=== PATIENT | male | born 1940 ===

== ENCOUNTER 2024-09-23 10:13 | Inpatient (IN) ==
--- NOTE | 2024-09-23 10:39 | Emergency Department Note ---
Impression & Plan Acute upper gastrointestinal bleeding, Anemia, Contusion of elbow, right, Skin tear of right upper extremity ED Provider Note NAME: ALLISON SWANN Jr AGE: 84 SEX: M : 1940 ARRIVES VIA: Walk-In INFORMANT: Patient, the patient's significant other ED PROVIDER(S): John Lacey DO CHIEF COMPLAINT: Dizziness HPI: The patient is an 84-year-old male who presented to the emergency department for an evaluation of dizziness. The patient did fall injuring his right elbow. He has a history of atrial fibrillation as well as a pacemaker. He does take Coumadin. He is been noticing dark stool recently. He was seen in an outside facility and was noted to be anemic but his anemia was not at the level requiring transfusion at that time. The patient presented to our facility after discussing his condition with his primary care physician. He was instructed to come to our facility. The patient denies having any chest pain. He did not strike his head. He denies having any neck pain or headache. The patient does take omeprazole. He states he is been compliant with his outpatient medications however he did hold his Coumadin. ROS: See above HPI for pertinent positives & negatives. A total of 10 systems reviewed and were otherwise negative. PAST MEDICAL HISTORY: See Below PAST SURGICAL HISTORY: See Below FAMILY HISTORY: See Below SOCIAL HISTORY: See Below HOME MEDICATIONS: See Below ALLERGIES: See Below VITALS: See Below PHYSICAL EXAMINATION: GENERAL: Patient is awake alert in no acute distress patient is resting comfortably and showing no signs of anxiety EYES: The conjunctivae are clear. The pupils are round and reactive. EARS, NOSE, MOUTH AND THROAT: The nose is without any evidence of any deformity. NECK: The neck is nontender and supple. RESPIRATORY: Normal respiratory effort is noted there is no evidence of wheezing rhonchi or rales CARDIOVASCULAR: Regular rate and rhythm noted there no murmurs rubs or gallops normal S1 normal S2. GASTROINTESTINAL: The abdomen is soft. Abdomen is nontender. Rectal exam revealed dark stool that was strongly heme positive. MUSCULOSKELETAL/EXTREMITIES: There is no evidence of gross deformity full range of motion is noted in the hips and shoulders. There is tenderness over the lateral aspect of the right elbow. Range of motion appears intact. SKIN: There is no obvious evidence of any rash. Pedal edema was noted bilaterally.. Small skin tear was noted over the right elbow. There is no active bleeding. NEUROLOGIC: Patient is awake alert and oriented x3 MEDICAL DECISION MAKING: The patient is an 84-year-old male who presented to the emergency department for dizziness weakness and anemia. The patient has a history of atrial fibrillation. He has a pacemaker. The patient was noted to have signs of upper GI bleeding on physical exam by his primary care physician. He was sent to a different emergency department but at that time did not meet criteria for a blood transfusion. The patient was having dizziness upon standing and did fall. He injured his right elbow. He did not strike his head. There is no reported headache or neck pain. On physical exam the patient did not have any neck pain. I discussed the patient's laboratory and radiographic studies with him. He was started on an blood transfusion that I ordered. The patient was also given IV vitamin K. [facility] evaluate the patient in the emergency department. Triage Nursing notes reviewed. Prior medical records reviewed Vital Signs: reviewed and remarkable for no significant abnormalities Differential diagnosis: Diverticulosis, AVM, coagulopathy, colitis, inflammatory bowel disease, malignancy, Norma-Tan tear, esophagitis, peptic ulcer disease, variceal bleed, gastritis, epistaxis, fissure, hemorrhoids, as well as other pathologies. ER treatment provided: See below Diagnostics interpreted by me: ECG: EKG was obtained in the emergency department. My interpretation is junctional bradycardia at 60 bpm. A left bundle branch block pattern was noted. Peaked T waves were also noted. No previous tracing was available. Cardiac Monitoring: An order was placed for continuous cardiac monitoring. The monitor shows a rate of 60 bpm with atrial fibrillation. Laboratory studies: As stated above and show below. Imaging studies: See below. Radiographic imaging was reviewed by myself Consultation(s): I discussed this case with Dr. Hunt who [facility] ED COURSE: Procedures: none Critical Care: I have personally spent greater than 45 minutes of critical care time in the direct management of this patient. This includes bedside care, interpretation of diagnostic studies, and testing, discussion with consultants, patient, and family members, and other required patient management activities. This 45 minutes is in excess of all separately billable procedures. Past Med/Surg History Problem List (Updated 09/23/24 @ 13:21 by John Lacey DO) Skin tear of right upper extremity (Acute) Contusion of elbow, right (Acute) Anemia (Acute) Acute upper gastrointestinal bleeding (Acute) Effusion, right elbow Upper gastrointestinal bleed Acute blood loss anemia Chronic anticoagulation Hypertension Dyslipidemia History of aortic valve replacement History of cardiac pacemaker in situ AV node dysfunction Paroxysmal atrial fibrillation Spermatocele Benign localized prostatic hyperplasia with lower urinary tract symptoms (LUTS) Surgical History (Updated 09/23/24 @ 12:28 by Jono Napier DO) History of cholecystectomy H/O oral surgery H/O colonoscopy Hx of heart surgery H/O knee surgery Family History Father Prostate cancer Brother Prostate cancer Social History Smoking Status: Unknown if ever smoked Hx Alcohol Use: Yes Preferred Language: Yi marital status: current occupational status: retired Feels Safe at Home: Yes Allergies Allergies Allergy/AdvReac Type Severity Reaction Status Date / Time No Known Allergies Allergy Verified 08/27/21 13:04 Home Meds Home Medications Medication Instructions Recorded Confirmed aspirin 81 mg tablet,delayed 81 mg PO DAILY 08/09/19 09/23/24 release cetirizine 10 mg capsule 10 mg PO DIRECTED PRN allergies 08/09/19 09/23/24 esomeprazole magnesium 20 mg 20 mg PO UD 08/09/19 09/23/24 capsule,delayed release lovastatin 40 mg tablet 40 mg PO DAILY 08/09/19 09/23/24 methylcellulose (laxative) 500 mg 500 mg PO DAILY 08/09/19 09/23/24 tablet (Citrucel) omeprazole 10 mg capsule,delayed 10 mg PO DAILY 08/09/19 09/23/24 release pantoprazole 20 mg tablet,delayed 20 mg PO UD 08/09/19 09/23/24 release triamcinolone acetonide 55 55 mcg intranasal DIRECTED 08/09/19 09/23/24 mcg/actuation nasal spray,aerosol warfarin 2 mg tablet 2 mg PO UD 08/09/19 09/23/24 clopidogrel 75 mg tablet 75 mg PO DAILY 09/23/24 09/23/24 metoprolol succinate 25 mg 25 mg PO DAILY 09/23/24 09/23/24 tablet,extended release 24 hr sotalol 80 mg tablet 40 mg PO BID 09/23/24 09/23/24 Previous Rx's Medication Instructions Recorded dutasteride 0.5 mg capsule 0.5 mg PO DAILY #90 caps 09/13/23 tamsulosin 0.4 mg capsule 0.4 mg PO DAILY #90 caps 09/11/24 Results & Data (ED) Vital Signs Vital Signs - 24 hr 09/23/24 10:15 09/23/24 10:15 09/23/24 10:17 Temperature 36.5 C Temperature Source Skin Pulse Rate - Lying Pulse Rate - Sitting Pulse Rate - Standing Pulse Rate 60 Pulse Rate [Left] 60 Pulse Rhythm Pulse Rhythm [Left] Regular Pulse Strength Pulse Strength [Left] Normal Respiratory Rate 24 20 Respiratory Effort / Characteristics Non-Labored Non-Labored Spontaneous Respiratory Depth Normal Normal Respiratory Pattern Regular Regular Blood Pressure - Lying Blood Pressure - Sitting Blood Pressure- Standing Blood Pressure 109/60 Blood Pressure [Left Arm] 155/79 H Blood Pressure Mean 76 Blood Pressure Mean [Left Arm] 104 Blood Pressure Position Blood Pressure Position [Left Arm] Lying Pulse Oximetry 100 100 Oxygen Delivery Method Room Air Room Air Room Air Sepsis Recent Fever Within 48 Hours No Sepsis New/Unexplained Change in Mental Status N/A Sepsis Action Taken by Nursing No Action Required 09/23/24 10:29 09/23/24 10:40 09/23/24 11:51 Temperature Temperature Source Pulse Rate - Lying 60 Pulse Rate - Sitting 60 Pulse Rate - Standing 71 Pulse Rate 60 61 Pulse Rate [Left] Pulse Rhythm Regular Pulse Rhythm [Left] Pulse Strength Pulse Strength [Left] Respiratory Rate 22 Respiratory Effort / Characteristics Respiratory Depth Respiratory Pattern Blood Pressure - Lying 140/80 Blood Pressure - Sitting 144/65 H Blood Pressure- Standing 122/54 L Blood Pressure Blood Pressure [Left Arm] Blood Pressure Mean Blood Pressure Mean [Left Arm] Blood Pressure Position Blood Pressure Position [Left Arm] Pulse Oximetry 100 Oxygen Delivery Method Room Air Sepsis Recent Fever Within 48 Hours Sepsis New/Unexplained Change in Mental Status Sepsis Action Taken by Nursing 09/23/24 12:17 09/23/24 12:36 09/23/24 12:51 Temperature 36.1 C L 36.5 C 36.7 C Temperature Source Oral Oral Oral Pulse Rate - Lying Pulse Rate - Sitting Pulse Rate - Standing Pulse Rate 63 63 60 Pulse Rate [Left] Pulse Rhythm Regular Pulse Rhythm [Left] Pulse Strength Normal Pulse Strength [Left] Respiratory Rate 18 17 18 Respiratory Effort / Characteristics Respiratory Depth Respiratory Pattern Blood Pressure - Lying Blood Pressure - Sitting Blood Pressure- Standing Blood Pressure 146/60 H 119/50 L 139/69 Blood Pressure [Left Arm] Blood Pressure Mean 88 73 92 Blood Pressure Mean [Left Arm] Blood Pressure Position Lying Blood Pressure Position [Left Arm] Pulse Oximetry 99 98 99 Oxygen Delivery Method Sepsis Recent Fever Within 48 Hours Sepsis New/Unexplained Change in Mental Status Sepsis Action Taken by Longterm Medications Current Medication List: was personally reviewed by me Laboratory Data Attestation: I reviewed the patient's lab results. 09/23/24 10:34 09/23/24 10:34 Lab Results 09/23/24 09/23/24 09/23/24 Range/Units 10:34 10:38 10:40 WBC 7.30 (4.8-10.8) K/ul RBC 2.50 L (4.70-6.10) M/uL Hgb 7.3 L (14.0-18.0) g/dl POC Hgb 7.1 L (14.0-18.0) g/dl Hct 22.7 L (42.0-52.0) % POC Hct 21 L (42-52) % MCV 90.8 (80.0-100.0) fL MCH 29.2 (25.0-34.0) pg MCHC 32.2 (32.0-36.0) g/dL RDW Std Deviation 57.8 H (36.4-46.3) fL RDW Coeff of Ziggy 17.4 H (11.5-14.5) % Plt Count 170 (130-400) K/uL MPV 10.6 (9.4-12.4) fL Immature Gran % (Auto) 0.4 % Neut % (Auto) 72.2 % Lymph % (Auto) 18.1 % [place] % (Auto) 8.2 % Eos % (Auto) 0.8 % Baso % (Auto) 0.3 % Neut # (Auto) 5.27 (1.40-6.50) K/uL Lymph # (Auto) 1.32 (1.20-3.40) K/uL [place] # (Auto) 0.60 H (0.11-0.59) K/uL Eos # (Auto) 0.06 (0.00-0.50) K/uL Baso # (Auto) 0.02 (0.00-0.20) K/uL Immature Gran # (Auto) 0.03 (0.01-0.20) K/uL Polychromasia 1+ PT 21.7 H (9.0-12.0) Seconds INR 2.1 H (0.9-1.1) APTT 30 (21-31) Seconds PTT Ratio 1.1 POC Sodium 140 (135-144) mmol/L Sodium 139 (136-145) mmol/L POC Potassium 3.9 (3.3-5.0) mmol/L Potassium 4.0 (3.5-5.1) mmol/L POC Chloride 104 (101-112) mmol/L Chloride 108 H (98-107) mmol/L Carbon Dioxide 28 (21-32) mmol/L POC Total CO2 24 (24-31) mmol/L Anion Gap 3 (3-11) POC Anion Gap 17.0 (16-25) mmol/L POC BUN 27 H (7-18) mg/dl BUN 30 H (6-23) mg/dl Creatinine 1.24 (0.6-1.4) mg/dl POC Creatinine 1.4 H (0.6-1.3) mg/dl Est Cr Clr Drug Dosing Not Reportable eGFR 58.05 BUN/Creatinine Ratio 24.2 H (10-20) Glucose 104 H (70-99(Fasting)) mg/dl POC Glucose (other) 98 (70-99) mg/dl Calcium 8.6 (8.6-10.3) mg/dl POC Ioniz Calcium Annia 1.19 (1.12-1.32) mmol/l Total Bilirubin 0.9 (0.2-1.0) mg/dl AST 18 (13-39) U/L ALT 10 (7-52) U/L Alkaline Phosphatase 76 (34-104) U/L Troponin I High Sens 17.5 (0-20) pg/ml Total Protein 6.0 (6.0-8.3) gm/dl Albumin 3.7 (3.4-5.0) gm/dl Globulin 2.3 L (2.5-4.0) gm/dl Albumin/Globulin Ratio 1.6 (0.9-2) Lipase 36 (11-82) U/L Blood Type O Positive Blood Type Recheck Antibody Screen NEGATIVE Crossmatch See Detail 09/23/24 Range/Units 11:12 WBC (4.8-10.8) K/ul RBC (4.70-6.10) M/uL Hgb (14.0-18.0) g/dl POC Hgb (14.0-18.0) g/dl Hct (42.0-52.0) % POC Hct (42-52) % MCV (80.0-100.0) fL MCH (25.0-34.0) pg MCHC (32.0-36.0) g/dL RDW Std Deviation (36.4-46.3) fL RDW Coeff of Ziggy (11.5-14.5) % Plt Count (130-400) K/uL MPV (9.4-12.4) fL Immature Gran % (Auto) % Neut % (Auto) % Lymph % (Auto) % [place] % (Auto) % Eos % (Auto) % Baso % (Auto) % Neut # (Auto) (1.40-6.50) K/uL Lymph # (Auto) (1.20-3.40) K/uL [place] # (Auto) (0.11-0.59) K/uL Eos # (Auto) (0.00-0.50) K/uL Baso # (Auto) (0.00-0.20) K/uL Immature Gran # (Auto) (0.01-0.20) K/uL Polychromasia PT (9.0-12.0) Seconds INR (0.9-1.1) APTT (21-31) Seconds PTT Ratio POC Sodium (135-144) mmol/L Sodium (136-145) mmol/L POC Potassium (3.3-5.0) mmol/L Potassium (3.5-5.1) mmol/L POC Chloride (101-112) mmol/L Chloride (98-107) mmol/L Carbon Dioxide (21-32) mmol/L POC Total CO2 (24-31) mmol/L Anion Gap (3-11) POC Anion Gap (16-25) mmol/L POC BUN (7-18) mg/dl BUN (6-23) mg/dl Creatinine (0.6-1.4) mg/dl POC Creatinine (0.6-1.3) mg/dl Est Cr Clr Drug Dosing eGFR BUN/Creatinine Ratio (10-20) Glucose (70-99(Fasting)) mg/dl POC Glucose (other) (70-99) mg/dl Calcium (8.6-10.3) mg/dl POC Ioniz Calcium Annia (1.12-1.32) mmol/l Total Bilirubin (0.2-1.0) mg/dl AST (13-39) U/L ALT (7-52) U/L Alkaline Phosphatase (34-104) U/L Troponin I High Sens (0-20) pg/ml Total Protein (6.0-8.3) gm/dl Albumin (3.4-5.0) gm/dl Globulin (2.5-4.0) gm/dl Albumin/Globulin Ratio (0.9-2) Lipase (11-82) U/L Blood Type Blood Type Recheck O Positive Antibody Screen Crossmatch Administered Medications Discontinued Medications Pantoprazole Sodium (Protonix) 40 mg in 10 mls @ 5 mls/min IV NOW ONE Stop: 09/23/24 10:30 Last Admin: 09/23/24 10:48 Dose: 5 mls/min Documented By: KHRIS Famotidine (Pepcid 20mg Iv Push) 20 mg in 5 mls @ 2.5 mls/min IV NOW STA Stop: 09/23/24 10:30 Last Admin: 09/23/24 10:48 Dose: 2.5 mls/min Documented By: KHRIS Phytonadione 5 mg/ Dextrose 50.5 mls @ 101 mls/hr IV ONE ONE Stop: 09/23/24 12:07 Last Admin: 09/23/24 12:29 Dose: 101 mls/hr Documented By: KHRIS Imaging Data Attestation: I personally reviewed and interpreted this imaging study as follows: My Impression: X-ray of the right elbow was obtained in the emergency department. My interpretation is no definite fracture, final report below. 1 view chest x-ray was obtained in the emergency department. My interpretation is no free air or definite full tray, final report below. Radiologist's Impression: Elbow X-Ray 09/23/24 10:29 HISTORY: Fall several days ago. Right elbow pain and skin abrasion. TECHNIQUE: Left right elbow, 4 views. COMPARISON: None. FINDINGS: No definite acute fracture. Mild elbow osteoarthrosis. Large elbow joint effusion. Multiple ossific intra-articular loose bodies. There is a large bulky enthesophyte about the posterior olecranon. Atherosclerotic vascular disease. IMPRESSION: 1. No definite acute fracture. Large elbow joint effusion raising the possibility of occult fracture. If symptoms persist, consider repeat radiographs in 7 to 10 days. 2. Soft tissue swelling about the dorsal aspect of the proximal forearm. 3. Intra-articular loose bodies. Mild osteoarthritis. 4. Large bulky distal triceps enthesophyte. Electronically signed by Real Earl 09-23-2024 11:54 AM Chest X-Ray 09/23/24 10:30 HISTORY: Upper GI bleed. Trauma due to fall. TECHNIQUE: Portable AP radiograph of the chest. COMPARISON: None. FINDINGS: No focal consolidation. No pneumothorax or pleural effusion. Mild cardiomegaly. Left subclavian approach dual-lead pacer. Left-sided aortic arch contains atherosclerotic calcification. Midline trachea. Degenerative changes of the shoulders and spine. Bilateral loss of the subacromial space consistent with chronic bilateral full-thickness rotator cuff tears. The included upper abdomen is unremarkable. Mild right calcified pleural plaques. IMPRESSION: 1. No acute cardiopulmonary findings. 2. Mild cardiomegaly. 3. Right calcified pleural plaques suggesting prior asbestos exposure. 4. Additional chronic and/for incidental findings as above. Electronically signed by Real Earl 09-23-2024 11:55 AM Discharge Plan Visit Data Chief Complaint: Weakness Stated Complaint: ANEMIA, WEAK, LIGHTHEADED/DIZZY, HEMOGLOBIN 7.8 ED Provider: John Lacey Discharge Problem: Acute upper gastrointestinal bleeding, Anemia, Contusion of elbow, right, Skin tear of right upper extremity Patient Disposition: Being Evaluated by Hospitalist Forms Stand Alone Forms: My EVRYTHNG Prescriptions Prescriptions: No Action tamsulosin 0.4 mg capsule 0.4 mg PO DAILY Qty: 90 3RF Rx Instructions: At Bedtime aspirin 81 mg tablet,delayed release (DR/EC) 81 mg PO DAILY Rx Instructions: otc unable to verify cetirizine 10 mg capsule 10 mg PO DIRECTED PRN (Reason: allergies) Rx Instructions: otc unable to verify Citrucel 500 mg tablet 500 mg PO DAILY Rx Instructions: otc unable to verify lovastatin 40 mg tablet 40 mg PO DAILY esomeprazole magnesium 20 mg capsule,delayed release(DR/EC) 20 mg PO UD Rx Instructions: not on file with pharmacy/otc, per pharmacist they only fill omeprazole. 20 mg po daily. triamcinolone acetonide 55 mcg/actuation aerosol 55 mcg intranasal DIRECTED Rx Instructions: not on file with pharmacy, maybe otc per pharmacist omeprazole 10 mg capsule,delayed release(DR/EC) 10 mg PO DAILY pantoprazole 20 mg tablet,delayed release (DR/EC) 20 mg PO UD Rx Instructions: 20 mg po daily. not on file with pharmacy warfarin 2 mg tablet 2 mg PO UD Rx Instructions: original:2 mg po q other day. Per pharmacy, they filled September 11 with directions of: 2mg tab po daily or as directed dutasteride 0.5 mg capsule 0.5 mg PO DAILY Qty: 90 3RF sotalol 80 mg tablet 40 mg PO BID clopidogrel 75 mg tablet 75 mg PO DAILY metoprolol succinate 25 mg tablet extended release 24 hr 25 mg PO DAILY Referrals Referrals: Ruben Arias [Staff Physician] -
[2024-09-23] MEDS ORDERED: SODIUM CHLORIDE 0.9% 100 ML IV PRN ×2 (10:42→19:01)
[2024-09-23] MEDS: FAMOTIDINE 20MG IV PUSH 20 MG/5 ML SYR IV STA (10:48)
[2024-09-23] MEDS: PANTOprazole 40 MG/10 ML SYR IV ONE (10:48)
[2024-09-23 10:52] LABS: iSTAT Creatinine 1.4 mg/dl (0.6-1.3); iSTAT Hemoglobin 7.1 g/dl (14.0-18.0); iSTAT Ionized Calcium 1.19 mmol/l (1.12-1.32); iSTAT Potassium 3.9 mmol/L (3.3-5.0)
[2024-09-23 10:53] LABS: Basophils # (auto) 0.02 K/uL (0.00-0.20); Basophils % (auto) 0.3 %; Eosinophils # (auto) 0.06 K/uL (0.00-0.50); Eosinophils % (auto) 0.8 %; Hematocrit (blood only) 22.7 % (42.0-52.0); Hemoglobin 7.3 g/dl (14.0-18.0); Immature Granulocytes # (auto) 0.03 K/uL (0.01-0.20); Immature Granulocytes % (auto) 0.4 %; Lymphocytes # (auto) 1.32 K/uL (1.20-3.40); Lymphocytes % (auto) 18.1 %; Mean Corpuscular Hemoglobin 29.2 pg (25.0-34.0); Mean Corpuscular Hgb Conc 32.2 g/dL (32.0-36.0); Mean Corpuscular Volume 90.8 fL (80.0-100.0); Mean Platelet Volume 10.6 fL (9.4-12.4); Monocytes % (auto) 8.2 %; Neutrophils # (auto) 5.27 K/uL (1.40-6.50); Neutrophils % (auto) 72.2 %; Platelet Count 170 K/uL (130-400); RDW Coefficient of Variation 17.4 % (11.5-14.5); RDW Standard Deviation 57.8 fL (36.4-46.3)
[2024-09-23 11:14] LABS: Alanine Aminotransferase 10 U/L (7-52); Albumin Globulin Ratio 1.6 (0.9-2); Albumin Level 3.7 gm/dl (3.4-5.0); Alkaline Phosphatase 76 U/L (34-104); Anion Gap 3 (3-11); Aspartate Aminotransferase 18 U/L (13-39); BUN Creatinine Ratio 24.2 (10-20); Bilirubin,Total 0.9 mg/dl (0.2-1.0); Blood Urea Nitrogen 30 mg/dl (6-23); Calcium 8.6 mg/dl (8.6-10.3); Carbon Dioxide 28 mmol/L (21-32); Chloride 108 mmol/L (98-107); Globulin 2.3 gm/dl (2.5-4.0); Glucose 104 mg/dl (70-99(Fasting)); Lipase 36 U/L (11-82); Sodium 139 mmol/L (136-145)
[2024-09-23 11:15] LABS: Polychromasia 1+
[2024-09-23 11:20] LABS: Troponin I High Sensitivity 17.5 pg/ml (0-20)
[2024-09-23 11:29] LABS: INR 2.1 (0.9-1.1); Partial Thromboplastin Ratio 1.1; Partial Thromboplastin Time 30 Seconds (21-31); Prothrombin Time 21.7 Seconds (9.0-12.0)
--- NOTE | 2024-09-23 11:54 | XRay Report ---
HISTORY: Fall several days ago. Right elbow pain and skin abrasion. TECHNIQUE: Left right elbow, 4 views. COMPARISON: None. FINDINGS: No definite acute fracture. Mild elbow osteoarthrosis. Large elbow joint effusion. Multiple ossific intra-articular loose bodies. There is a large bulky enthesophyte about the posterior olecranon. Atherosclerotic vascular disease. IMPRESSION: 1. No definite acute fracture. Large elbow joint effusion raising the possibility of occult fracture. If symptoms persist, consider repeat radiographs in 7 to 10 days. 2. Soft tissue swelling about the dorsal aspect of the proximal forearm. 3. Intra-articular loose bodies. Mild osteoarthritis. 4. Large bulky distal triceps enthesophyte. Electronically signed by Real Earl 09-23-2024 11:54 AM
--- NOTE | 2024-09-23 11:56 | XRay Report ---
HISTORY: Upper GI bleed. Trauma due to fall. TECHNIQUE: Portable AP radiograph of the chest. COMPARISON: None. FINDINGS: No focal consolidation. No pneumothorax or pleural effusion. Mild cardiomegaly. Left subclavian approach dual-lead pacer. Left-sided aortic arch contains atherosclerotic calcification. Midline trachea. Degenerative changes of the shoulders and spine. Bilateral loss of the subacromial space consistent with chronic bilateral full-thickness rotator cuff tears. The included upper abdomen is unremarkable. Mild right calcified pleural plaques. IMPRESSION: 1. No acute cardiopulmonary findings. 2. Mild cardiomegaly. 3. Right calcified pleural plaques suggesting prior asbestos exposure. 4. Additional chronic and/for incidental findings as above. Electronically signed by Real Earl 09-23-2024 11:55 AM
[2024-09-23] MEDS: PHYTONADIONE 5 MG in DEXTROSE 5% 50 ML IV ONE (12:29)
--- NOTE | 2024-09-23 12:35 | History & Physical Report ---
Date of Service September 23, 2024 Assessment & Plan (1) Acute blood loss anemia: (2) Upper gastrointestinal bleed: (3) Effusion, right elbow: (4) Paroxysmal atrial fibrillation: (5) Chronic anticoagulation: (6) History of aortic valve replacement: Plan: Bovine valve (7) History of cardiac pacemaker in situ: (8) Hypertension: Plan Patient presents emergency department with signs and symptoms consistent with anemia including suspected orthostasis, dyspnea on exertion and lightheadedness and dizziness. With the symptoms and history of heart disorder would meet criteria for blood transfusion. Requires hospitalization for treatment, monitoring and specialty consultation. Admit to the MedSurg unit. Patient has been consented for blood and as already receiving PRBCs here in the ED Continue to hold warfarin and antiplatelet therapy. Patient has been holding these medications since Wednesday Vitamin K given in the ED PPI twice daily Monitor hemoglobin, monitor INR Consult GI to evaluate for possible endoscopy Discussed CODE STATUS, patient wishes to be full code and daughter at bedside agreeable to plan of care as well History of Present Illness Chief Complaint: Weight, easily fatigued, low blood count Primary Care Provider: Katia Gold MD Patient is an 84-year-old gentleman on chronic warfarin therapy for history of paroxysmal atrial fibrillation. Reports he has been seeing dark/black stools for at least a week and a half. Has been getting progressively weaker and more fatigued with activity. He fell this past Wednesday walking out of his bedroom after getting out of bed. Did not seek medical attention at that time. Was instructed to go to the emergency department by his PCP yesterday. Went to the outside emergency department facility. His initial hemoglobin was apparently in the mid sevens and was discharged home, his PCP sent him back to the ED for repeat hemoglobin and apparently the repeat hemoglobin was greater than 8 and he was discharged home. PCP subsequently instructed the patient today to go to [facility] emergency department for further evaluation. Patient presented to [facility] emergency department. His hemoglobin is 7.3 here he does admit to lightheadedness and dizziness with changes in position. Does admit to increased fatigue and shortness of breath with any type of activity which is unusual for him. He denies any fever or chills, no cough or cold symptoms. He states he has chronic postnasal drip which is the same as his baseline. No chest pain or shortness of breath at rest. He has been eating and drinking well. His bowels and bladder have been functioning normal for him with the exception that he has noticed that his stools have turned black tarry color and consistency. No new swelling in his hands arms legs or feet. Tenderness right elbow, injured when h e fell on Wednesday Allergies Allergy/AdvReac Type Severity Reaction Status Date / Time No Known Allergies Allergy Verified 08/27/21 13:04 Home Medications Medication Instructions Recorded Confirmed Type aspirin 81 mg tablet,delayed 81 mg PO DAILY 08/09/19 09/23/24 History release cetirizine 10 mg capsule 10 mg PO DIRECTED PRN allergies 08/09/19 09/23/24 History esomeprazole magnesium 20 mg 20 mg PO UD 08/09/19 09/23/24 History capsule,delayed release lovastatin 40 mg tablet 40 mg PO DAILY 08/09/19 09/23/24 History methylcellulose (laxative) 500 mg 500 mg PO DAILY 08/09/19 09/23/24 History tablet (Citrucel) omeprazole 10 mg capsule,delayed 10 mg PO DAILY 08/09/19 09/23/24 History release pantoprazole 20 mg tablet,delayed 20 mg PO UD 08/09/19 09/23/24 History release triamcinolone acetonide 55 55 mcg intranasal DIRECTED 08/09/19 09/23/24 History mcg/actuation nasal spray,aerosol warfarin 2 mg tablet 2 mg PO UD 08/09/19 09/23/24 History dutasteride 0.5 mg capsule 0.5 mg PO DAILY #90 caps 09/13/23 09/23/24 Rx tamsulosin 0.4 mg capsule 0.4 mg PO DAILY #90 caps 09/11/24 09/23/24 Rx clopidogrel 75 mg tablet 75 mg PO DAILY 09/23/24 09/23/24 History metoprolol succinate 25 mg 25 mg PO DAILY 09/23/24 09/23/24 History tablet,extended release 24 hr sotalol 80 mg tablet 40 mg PO BID 09/23/24 09/23/24 History Past Med/Surg History Problem List (Updated 09/23/24 @ 12:32 by Jono Napier DO) Effusion, right elbow Upper gastrointestinal bleed Acute blood loss anemia Chronic anticoagulation Hypertension Dyslipidemia History of aortic valve replacement History of cardiac pacemaker in situ AV node dysfunction Paroxysmal atrial fibrillation Spermatocele Benign localized prostatic hyperplasia with lower urinary tract symptoms (LUTS) Surgical History (Updated 09/23/24 @ 12:28 by Jono Napier DO) History of cholecystectomy H/O oral surgery H/O colonoscopy Hx of heart surgery H/O knee surgery Family History Father Prostate cancer Brother Prostate cancer Social History Smoking Status: Unknown if ever smoked Hx Alcohol Use: Yes Preferred Language: Danish marital status: current occupational status: retired Feels Safe at Home: Yes Review of Systems Review of Systems: Pertinent positive and negative review of systems as mentioned in the HPI Physical Exam Physical Exam: Constitutional: Alert, slightly pale in appearance, nontoxic HEENT: Mucous membranes moist. Sclera clear Neck: Soft, no adenopathy Lungs: Clear to auscultation, decreased, no wheezes rales or rhonchi CV: S1-S2, regular, systolic murmur Abdomen: Soft, nontender, nondistended Extremities: No significant edema Musculoskeletal: Right elbow tenderness, fluctuant effusion Neuro: No focal deficits Psych: Cooperative, normal mood Results & Data Results & Data Vital Signs (Past 12 Hours) Vital Signs Temp Pulse Pulse Resp BP BP Pulse Ox 09/23/24 12:17 36.1 C L 63 18 146/60 H 99 09/23/24 10:40 61 09/23/24 10:29 60 22 100 09/23/24 10:17 36.5 C 60 20 109/60 100 09/23/24 10:15 60 24 155/79 H 100 09/23/24 10:15 O2 Del Method 09/23/24 12:17 09/23/24 10:40 09/23/24 10:29 Room Air 09/23/24 10:17 Room Air 09/23/24 10:15 Room Air 09/23/24 10:15 Room Air Diagnostic Findings Reviewed imaging, laboratory and diagnostic studies. Pertinent findings as below. Hemoglobin 7.3 Platelets of 170 INR 2.1 Electrolytes stable Creatinine 1.24 Glucose of 104 Personally reviewed chest x-ray no acute cardiopulmonary abnormalities Right elbow x-ray, no definitive fracture, large effusion Code Status & VTE Plan VTE Prophylaxis Plan VTE Prophylaxis will be ordered: Yes
[2024-09-23] MEDS ORDERED: ONDANSETRON INJ 2 MG/ML 2 ML VIAL IV PRN (14:31)
[2024-09-23] MEDS ORDERED: MELATONIN 3 MG TAB PO PRN (14:31)
[2024-09-23] MEDS ORDERED: ALUMINUM/MAGNESIUM SUSP 30 ML UDC PO PRN (14:31)
[2024-09-23] MEDS: PANTOprazole 40 MG/10 ML SYR IV SCH (15:36)
[2024-09-23 15:49] LABS: Appearance Urine Clear (Clear); Bacteria Urine Automated None Seen (None Seen); Bilirubin Urine Negative (Negative); Blood Urine Negative (Negative); Cast Urine Automated 0-2 /lpf (0-2); Color Urine Dark Yellow; Epithelial Cell Urine Auto 0-2 /hpf (0-2); Glucose Urine UA Negative (Negative); Ketones Urine Trace (Negative); Leukocyte Esterase Urine Negative (Negative); Nitrite Urine Negative (Negative); Protein Urine Trace (Negative); RBC Urine Automated 0-2 /hpf (0-2); Specific Gravity Urine 1.028 (1.000-1.030); Urobilinogen Urine Negative (Negative); WBC Urine Automated 0-5 /hpf (0-5)
[2024-09-23 18:25] LABS: Hematocrit (blood only) 22.6 % (42.0-52.0); Hemoglobin 7.2 g/dl (14.0-18.0)
[2024-09-23] MEDS: FUROSEMIDE INJ 20 MG/2 ML VIAL IV ONE (20:07)
[2024-09-23] MEDS: SOTALOL HCL 80 MG TAB PO SCH (21:10)
[2024-09-24 01:35] LABS: Hematocrit (blood only) 26.3 % (42.0-52.0); Hemoglobin 8.7 g/dl (14.0-18.0)
[2024-09-24 06:15] LABS: Hematocrit (blood only) 24.6 % (42.0-52.0); Hemoglobin 8.2 g/dl (14.0-18.0); Mean Corpuscular Hemoglobin 29.2 pg (25.0-34.0); Mean Corpuscular Hgb Conc 33.3 g/dL (32.0-36.0); Mean Corpuscular Volume 87.5 fL (80.0-100.0); Mean Platelet Volume 10.7 fL (9.4-12.4); Platelet Count 153 K/uL (130-400); RDW Coefficient of Variation 16.3 % (11.5-14.5); RDW Standard Deviation 51.8 fL (36.4-46.3); Red Blood Count 2.81 M/uL (4.70-6.10); White Blood Count 6.23 K/ul (4.8-10.8)
[2024-09-24 06:37] LABS: INR 1.3 (0.9-1.1); Prothrombin Time 13.6 Seconds (9.0-12.0)
[2024-09-24 06:49] LABS: BUN Creatinine Ratio 18.4 (10-20); Calcium 8.2 mg/dl (8.6-10.3); Creatinine Clr Calc Pharmacy 59.2 ml/min; Potassium 3.7 mmol/L (3.5-5.1)
[2024-09-24] MEDS: FINASTERIDE 5 MG TAB PO SCH (09:05)
[2024-09-24] MEDS: TAMSULOSIN HCL 0.4 MG CAP PO SCH (09:06)
[2024-09-24] MEDS: METOPROLOL SUCC 25MG EXT REL TAB PO SCH (09:14)
--- NOTE | 2024-09-24 09:31 | Gastrointestinal Consultation ---
Date of Consultation September 24, 2024 Assessment & Plan (1) Anemia: Pleasant man with a week and a half of melena which he says stopped on Wednesday. That day his stools were black/brown and he has not had a bowel movement since. I suspect he has a GI bleed related to ulcer disease, possibly related to ASA a nd it seems to have stopped. Of course there are a number of other possible causes for UGI bleed including AVM's and GI malignancy. Plan EGD for tomorrow. He agrees History of Present Illness Reason for Consultation: melena Attending Physician: Luis Fisher MD History of Present Illness 84year old man who has been having black stools for about a week and a half. He denies abdominal pain with it. He had a fall three days prior to admission and bruised his elbow. He was in the hospital at "[facility]" and his PCP told him to leave there and to come here because they didn't give him any blood. He was taking plavix, warfarin and ASA and his PCP stopped that last week when he reported the black stools. He denies other NSAIDs. He has never had an ulcer before, only prior GI issue was "diverticulitis". Sees GI at [facility]. Thinks he had an EGD when he had his valve replacement with bovine valve. He tells me he feels great now. Allergies Allergy/AdvReac Type Severity Reaction Status Date / Time No Known Allergies Allergy Verified 08/27/21 13:04 Home Medications Medication Instructions Recorded Confirmed Type aspirin 81 mg tablet,delayed 81 mg PO DAILY 08/09/19 09/23/24 History release cetirizine 10 mg capsule 10 mg PO DIRECTED PRN allergies 08/09/19 09/23/24 History esomeprazole magnesium 20 mg 20 mg PO UD 08/09/19 09/23/24 History capsule,delayed release lovastatin 40 mg tablet 40 mg PO DAILY 08/09/19 09/23/24 History methylcellulose (laxative) 500 mg 500 mg PO DAILY 08/09/19 09/23/24 History tablet (Citrucel) omeprazole 10 mg capsule,delayed 10 mg PO DAILY 08/09/19 09/23/24 History release pantoprazole 20 mg tablet,delayed 20 mg PO UD 08/09/19 09/23/24 History release triamcinolone acetonide 55 55 mcg intranasal DIRECTED 08/09/19 09/23/24 History mcg/actuation nasal spray,aerosol warfarin 2 mg tablet 2 mg PO UD 08/09/19 09/23/24 History dutasteride 0.5 mg capsule 0.5 mg PO DAILY #90 caps 09/13/23 09/23/24 Rx tamsulosin 0.4 mg capsule 0.4 mg PO DAILY #90 caps 09/11/24 09/23/24 Rx clopidogrel 75 mg tablet 75 mg PO DAILY 09/23/24 09/23/24 History metoprolol succinate 25 mg 25 mg PO DAILY 09/23/24 09/23/24 History tablet,extended release 24 hr sotalol 80 mg tablet 40 mg PO BID 09/23/24 09/23/24 History Patient History Surgical History History of cholecystectomy H/O oral surgery H/O colonoscopy Hx of heart surgery H/O knee surgery Family History Father Prostate cancer Brother Prostate cancer Social History Smoking Status: Former smoker Tobacco Type: Cigarettes and Cigars Second Hand Exposure: No; Tobacco Cessation Education Requested by Patient: No Hx Alcohol Use: No Hx Substance Use: No Preferred Language: Faroese Communication Ability: Effective Water Quality Tester Required: No Beliefs That Will Affect Care: None marital status: Current Living Situation: Spouse current occupational status: retired Other Information That Helps Us Care for You: No Feels Safe at Home: Yes Safety Concerns: Feels Safe At This Time Assistive Devices: Cane and Glasses Review of Systems Review of Systems: All systems reviewed & are unremarkable except as noted in HPI & below Physical Exam Physical Exam: Pleasant elderly man in no distress Constitutional: WD/WN, vitals as above Neck: trachea midline, no thyromegaly Respiratory: normal respiratory effort, lungs clear to auscultation Cardiovascular: RRR, no murmur, no edema Gastrointestinal (Abdomen): normal bowel sounds, soft, nontender, no hepatosplenomegaly Results & Data Vital Signs (Past 12 Hours) Vital Signs Temp Pulse Pulse Resp BP BP Pulse Ox 09/24/24 07:09 36.4 C L 60 18 124/63 97 09/23/24 23:25 36.6 C 61 20 117/63 97 09/23/24 22:25 36.6 C 61 20 116/50 L 98 O2 Del Method 09/24/24 07:09 Room Air 09/23/24 23:25 09/23/24 22:25 Laboratory Results 09/24/24 09/24/24 09/23/24 Range/Units 05:22 01:13 17:59 WBC 6.23 (4.8-10.8) K/ul RBC 2.81 L (4.70-6.10) M/uL Hgb 8.2 L 8.7 L 7.2 L (14.0-18.0) g/dl POC Hgb (14.0-18.0) g/dl Hct 24.6 L 26.3 L 22.6 L (42.0-52.0) % POC Hct (42-52) % MCV 87.5 (80.0-100.0) fL MCH 29.2 (25.0-34.0) pg MCHC 33.3 (32.0-36.0) g/dL RDW Std Deviation 51.8 H (36.4-46.3) fL RDW Coeff of Ziggy 16.3 H (11.5-14.5) % Plt Count 153 (130-400) K/uL MPV 10.7 (9.4-12.4) fL Immature Gran % (Auto) % Neut % (Auto) % Lymph % (Auto) % Liberty % (Auto) % Eos % (Auto) % Baso % (Auto) % Neut # (Auto) (1.40-6.50) K/uL Lymph # (Auto) (1.20-3.40) K/uL Liberty # (Auto) (0.11-0.59) K/uL Eos # (Auto) (0.00-0.50) K/uL Baso # (Auto) (0.00-0.20) K/uL Immature Gran # (Auto) (0.01-0.20) K/uL Polychromasia PT 13.6 H (9.0-12.0) Seconds INR 1.3 H (0.9-1.1) APTT (21-31) Seconds PTT Ratio POC Sodium (135-144) mmol/L Sodium 140 (136-145) mmol/L POC Potassium (3.3-5.0) mmol/L Potassium 3.7 (3.5-5.1) mmol/L POC Chloride (101-112) mmol/L Chloride 105 (98-107) mmol/L Carbon Dioxide 29 (21-32) mmol/L POC Total CO2 (24-31) mmol/L Anion Gap 6 (3-11) POC Anion Gap (16-25) mmol/L POC BUN (7-18) mg/dl BUN 23 (6-23) mg/dl Creatinine 1.25 (0.6-1.4) mg/dl POC Creatinine (0.6-1.3) mg/dl Est Cr Clr Drug Dosing 59.2 eGFR 57.49 BUN/Creatinine Ratio 18.4 (10-20) Glucose 92 (70-99(Fasting)) mg/dl POC Glucose (other) (70-99) mg/dl Calcium 8.2 L (8.6-10.3) mg/dl POC Ioniz Calcium Annia (1.12-1.32) mmol/l Total Bilirubin (0.2-1.0) mg/dl AST (13-39) U/L ALT (7-52) U/L Alkaline Phosphatase (34-104) U/L Troponin I High Sens (0-20) pg/ml Total Protein (6.0-8.3) gm/dl Albumin (3.4-5.0) gm/dl Globulin (2.5-4.0) gm/dl Albumin/Globulin Ratio (0.9-2) Lipase (11-82) U/L Urine Color Urine Appearance (Clear) Urine pH (4.5-7.5) Ur Specific [place] (1.000-1.030) Urine Protein (Negative) Urine Glucose (UA) (Negative) Urine Ketones (Negative) Urine Blood (Negative) Urine Nitrite (Negative) Urine Bilirubin (Negative) Urine Urobilinogen (Negative) Ur Leukocyte Esterase (Negative) Urine WBC (Auto) (0-5) /hpf Urine RBC (Auto) (0-2) /hpf U Hyaline Cast (Auto) (0-2) /lpf U Epithel Cells (Auto) (0-2) /hpf Urine Bacteria (Auto) (None Seen) Blood Type Blood Type Recheck Antibody Screen Crossmatch 09/23/24 09/23/24 09/23/24 Range/Units 15:36 11:12 10:40 WBC (4.8-10.8) K/ul RBC (4.70-6.10) M/uL Hgb (14.0-18.0) g/dl POC Hgb 7.1 L (14.0-18.0) g/dl Hct (42.0-52.0) % POC Hct 21 L (42-52) % MCV (80.0-100.0) fL MCH (25.0-34.0) pg MCHC (32.0-36.0) g/dL RDW Std Deviation (36.4-46.3) fL RDW Coeff of Ziggy (11.5-14.5) % Plt Count (130-400) K/uL MPV (9.4-12.4) fL Immature Gran % (Auto) % Neut % (Auto) % Lymph % (Auto) % Liberty % (Auto) % Eos % (Auto) % Baso % (Auto) % Neut # (Auto) (1.40-6.50) K/uL Lymph # (Auto) (1.20-3.40) K/uL Liberty # (Auto) (0.11-0.59) K/uL Eos # (Auto) (0.00-0.50) K/uL Baso # (Auto) (0.00-0.20) K/uL Immature Gran # (Auto) (0.01-0.20) K/uL Polychromasia PT (9.0-12.0) Seconds INR (0.9-1.1) APTT (21-31) Seconds PTT Ratio POC Sodium 140 (135-144) mmol/L Sodium (136-145) mmol/L POC Potassium 3.9 (3.3-5.0) mmol/L Potassium (3.5-5.1) mmol/L POC Chloride 104 (101-112) mmol/L Chloride (98-107) mmol/L Carbon Dioxide (21-32) mmol/L POC Total CO2 24 (24-31) mmol/L Anion Gap (3-11) POC Anion Gap 17.0 (16-25) mmol/L POC BUN 27 H (7-18) mg/dl BUN (6-23) mg/dl Creatinine (0.6-1.4) mg/dl POC Creatinine 1.4 H (0.6-1.3) mg/dl Est Cr Clr Drug Dosing eGFR BUN/Creatinine Ratio (10-20) Glucose (70-99(Fasting)) mg/dl POC Glucose (other) 98 (70-99) mg/dl Calcium (8.6-10.3) mg/dl POC Ioniz Calcium Annia 1.19 (1.12-1.32) mmol/l Total Bilirubin (0.2-1.0) mg/dl AST (13-39) U/L ALT (7-52) U/L Alkaline Phosphatase (34-104) U/L Troponin I High Sens (0-20) pg/ml Total Protein (6.0-8.3) gm/dl Albumin (3.4-5.0) gm/dl Globulin (2.5-4.0) gm/dl Albumin/Globulin Ratio (0.9-2) Lipase (11-82) U/L Urine Color Dark Yellow Urine Appearance Clear (Clear) Urine pH 5.0 (4.5-7.5) Ur Specific [place] 1.028 (1.000-1.030) Urine Protein Trace H (Negative) Urine Glucose (UA) Negative (Negative) Urine Ketones Trace H (Negative) Urine Blood Negative (Negative) Urine Nitrite Negative (Negative) Urine Bilirubin Negative (Negative) Urine Urobilinogen Negative (Negative) Ur Leukocyte Esterase Negative (Negative) Urine WBC (Auto) 0-5 (0-5) /hpf Urine RBC (Auto) 0-2 (0-2) /hpf U Hyaline Cast (Auto) 0-2 (0-2) /lpf U Epithel Cells (Auto) 0-2 (0-2) /hpf Urine Bacteria (Auto) None Seen (None Seen) Blood Type Blood Type Recheck O Positive Antibody Screen Crossmatch 09/23/24 09/23/24 Range/Units 10:38 10:34 WBC 7.30 (4.8-10.8) K/ul RBC 2.50 L (4.70-6.10) M/uL Hgb 7.3 L (14.0-18.0) g/dl POC Hgb (14.0-18.0) g/dl Hct 22.7 L (42.0-52.0) % POC Hct (42-52) % MCV 90.8 (80.0-100.0) fL MCH 29.2 (25.0-34.0) pg MCHC 32.2 (32.0-36.0) g/dL RDW Std Deviation 57.8 H (36.4-46.3) fL RDW Coeff of Ziggy 17.4 H (11.5-14.5) % Plt Count 170 (130-400) K/uL MPV 10.6 (9.4-12.4) fL Immature Gran % (Auto) 0.4 % Neut % (Auto) 72.2 % Lymph % (Auto) 18.1 % Liberty % (Auto) 8.2 % Eos % (Auto) 0.8 % Baso % (Auto) 0.3 % Neut # (Auto) 5.27 (1.40-6.50) K/uL Lymph # (Auto) 1.32 (1.20-3.40) K/uL Liberty # (Auto) 0.60 H (0.11-0.59) K/uL Eos # (Auto) 0.06 (0.00-0.50) K/uL Baso # (Auto) 0.02 (0.00-0.20) K/uL Immature Gran # (Auto) 0.03 (0.01-0.20) K/uL Polychromasia 1+ PT 21.7 H (9.0-12.0) Seconds INR 2.1 H (0.9-1.1) APTT 30 (21-31) Seconds PTT Ratio 1.1 POC Sodium (135-144) mmol/L Sodium 139 (136-145) mmol/L POC Potassium (3.3-5.0) mmol/L Potassium 4.0 (3.5-5.1) mmol/L POC Chloride (101-112) mmol/L Chloride 108 H (98-107) mmol/L Carbon Dioxide 28 (21-32) mmol/L POC Total CO2 (24-31) mmol/L Anion Gap 3 (3-11) POC Anion Gap (16-25) mmol/L POC BUN (7-18) mg/dl BUN 30 H (6-23) mg/dl Creatinine 1.24 (0.6-1.4) mg/dl POC Creatinine (0.6-1.3) mg/dl Est Cr Clr Drug Dosing Not Reportable eGFR 58.05 BUN/Creatinine Ratio 24.2 H (10-20) Glucose 104 H (70-99(Fasting)) mg/dl POC Glucose (other) (70-99) mg/dl Calcium 8.6 (8.6-10.3) mg/dl POC Ioniz Calcium Annia (1.12-1.32) mmol/l Total Bilirubin 0.9 (0.2-1.0) mg/dl AST 18 (13-39) U/L ALT 10 (7-52) U/L Alkaline Phosphatase 76 (34-104) U/L Troponin I High Sens 17.5 (0-20) pg/ml Total Protein 6.0 (6.0-8.3) gm/dl Albumin 3.7 (3.4-5.0) gm/dl Globulin 2.3 L (2.5-4.0) gm/dl Albumin/Globulin Ratio 1.6 (0.9-2) Lipase 36 (11-82) U/L Urine Color Urine Appearance (Clear) Urine pH (4.5-7.5) Ur Specific [place] (1.000-1.030) Urine Protein (Negative) Urine Glucose (UA) (Negative) Urine Ketones (Negative) Urine Blood (Negative) Urine Nitrite (Negative) Urine Bilirubin (Negative) Urine Urobilinogen (Negative) Ur Leukocyte Esterase (Negative) Urine WBC (Auto) (0-5) /hpf Urine RBC (Auto) (0-2) /hpf U Hyaline Cast (Auto) (0-2) /lpf U Epithel Cells (Auto) (0-2) /hpf Urine Bacteria (Auto) (None Seen) Blood Type O Positive Blood Type Recheck Antibody Screen NEGATIVE Crossmatch See Detail Diagnostic Findings Elbow X-Ray 09/23/24 10:29 HISTORY: Fall several days ago. Right elbow pain and skin abrasion. TECHNIQUE: Left right elbow, 4 views. COMPARISON: None. FINDINGS: No definite acute fracture. Mild elbow osteoarthrosis. Large elbow joint effusion. Multiple ossific intra-articular loose bodies. There is a large bulky enthesophyte about the posterior olecranon. Atherosclerotic vascular disease. IMPRESSION: 1. No definite acute fracture. Large elbow joint effusion raising the possibility of occult fracture. If symptoms persist, consider repeat radiographs in 7 to 10 days. 2. Soft tissue swelling about the dorsal aspect of the proximal forearm. 3. Intra-articular loose bodies. Mild osteoarthritis. 4. Large bulky distal triceps enthesophyte. Electronically signed by Real Earl 09-23-2024 11:54 AM Chest X-Ray 09/23/24 10:30 HISTORY: Upper GI bleed. Trauma due to fall. TECHNIQUE: Portable AP radiograph of the chest. COMPARISON: None. FINDINGS: No focal consolidation. No pneumothorax or pleural effusion. Mild cardiomegaly. Left subclavian approach dual-lead pacer. Left-sided aortic arch contains atherosclerotic calcification. Midline trachea. Degenerative changes of the shoulders and spine. Bilateral loss of the subacromial space consistent with chronic bilateral full-thickness rotator cuff tears. The included upper abdomen is unremarkable. Mild right calcified pleural plaques. IMPRESSION: 1. No acute cardiopulmonary findings. 2. Mild cardiomegaly. 3. Right calcified pleural plaques suggesting prior asbestos exposure. 4. Additional chronic and/for incidental findings as above. Electronically signed by Real Earl 09-23-2024 11:55 AM
--- NOTE | 2024-09-24 13:59 | Electrocardiogram Report ---
Test Reason : Blood Pressure : */* mmHG Vent. Rate : 60 BPM Atrial Rate : * BPM P-R Int : * ms QRS Dur : 136 ms QT Int : 494 ms P-R-T Axes : * 92 -26 degrees QTcB Int : 494 ms Wide QRS rhythm Rightward axis Left bundle branch block Cannot rule out Septal infarct , age undetermined T wave abnormality, consider inferior ischemia Abnormal ECG No previous ECGs available Artifact limits interpretation Confirmed by Lindsay Arthur ([id number]) on 09/24/2024 1:59:11 PM Referred By: REFERRED SELF Confirmed By: Lindsay Arthur
--- NOTE | 2024-09-24 17:47 | Hospitalist Progress Note ---
Date of Service September 24, 2024 Assessment & Plan (1) Acute blood loss anemia: Plan: -s/p 2 units of blood -black stools for past week or so -concern for upper GI bleed Plan: -continue protonix IV bid until scope -GI consulted, appreciate recs, EGD tomorrow -NPO after midnight -CBC q12hrs until scope -will discuss PT/OT with patient, however wants to go home after procedure (2) Upper gastrointestinal bleed: Plan: -see above (3) Effusion, right elbow: Plan: -per patient pain is bearable at this time (4) Paroxysmal atrial fibrillation: Plan: -hold warfarin at this time given GI bleed (5) Chronic anticoagulation: Plan: -see above (6) History of aortic valve replacement: Plan: -Bovine valve (7) History of cardiac pacemaker in situ: Plan: -noted (8) Hypertension: Plan: -f/u outpatient Plan I spent a total of 50 minutes in direct patient care, including [id number] time with the patient and/or family, reviewing medical records, ordering and reviewing diagnostic tests, and coordinating care with other healthcare providers. This time includes: history taking, physical examination, medical decision making, counseling, ECG interpretation, imaging interpretation, lab interpretation, orders, and education, excluding time spent in the performance of separately billed services. Admission and Anticipated Discharge Date Admission Date: September 23, 2024 Subjective Patient seen and examined at bedside. Patient states he has been been having dark stools for the past few weeks, that stopped a day ago. He states he had imaging done at an outside hospital and is wondering if there was a concern on that for an ulcer. He is looking forward to his Review of Systems Review of Systems: CONSTITUTIONAL: Patient denies fevers, chills, sweats and weight changes. EYES: Patient denies any visual symptoms. EARS, NOSE, AND THROAT: No difficulties with hearing. No symptoms of rhinitis or sore throat. CARDIOVASCULAR: Patient denies chest pains, palpitations, orthopnea and paroxysmal nocturnal dyspnea. RESPIRATORY: No dyspnea on exertion, no wheezing or cough. GI: No nausea, vomiting, diarrhea, constipation, abdominal pain, hematochezia or melena. : No urinary hesitancy or dribbling. No nocturia or urinary frequency. No abnormal urethral discharge. MUSCULOSKELETAL: No myalgias or arthralgias. NEUROLOGIC: No chronic headaches, no seizures. Patient denies numbness, tingling or weakness. PSYCHIATRIC: Patient denies problems with mood disturbance. No problems with anxiety. ENDOCRINE: No excessive urination or excessive thirst. DERMATOLOGIC: Patient denies any rashes or skin changes. Physical Exam Physical Exam: Gen: A&O 3 NAD HEENT: NCAT, EOMI, not icteric. External ears normal. No rhinorrhea. Moist mucous membranes. poor dentition Neck: Supple, full range of motion, no observable masses, No meningeal sign. Lungs: No Respiratory distress. CV: RRR, no edema. Abdomen: Soft, nondistended, No rebound tenderness. MSK: No joint swelling, no redness. Skin: No rashes, petechiae, lesions. Normal color per patient. Neuro: Normal Gait, Grossly intact. Psych: Appropriate for situation. Results & Data Results & Data Vital Signs (Past 12 Hours) Vital Signs Temp Pulse Resp BP BP Pulse Ox O2 Del Method 09/24/24 15:24 36.7 C 59 L 18 126/64 98 Room Air 09/24/24 07:09 36.4 C L 60 18 124/63 97 Room Air Laboratory Results -personally reviewed, Hgb 8.2 this morning, creatinine stable Medications Administered Finasteride (Finasteride 5 Mg Tab) 5 mg PO DAILY BRANDON Stop: 10/24/24 08:59 Last Admin: 09/24/24 09:05 Dose: 5 mg Documented By: EMERITA Pantoprazole Sodium (Protonix) 40 mg in 10 mls @ 5 mls/min IV BID BRANDON Stop: 10/23/24 14:30 Last Admin: 09/24/24 09:05 Dose: 5 mls/min Documented By: Admin: 09/23/24 20:05 Dose: 5 mls/min Documented By: Admin: 09/23/24 15:36 Dose: 5 mls/min Documented By: EMERITA Metoprolol Succinate (Metoprolol Succ 25mg Ext Rel Tab) 25 mg PO DAILY BRANDON Stop: 10/24/24 08:59 Last Admin: 09/24/24 09:14 Dose: 12.5 mg Documented By: EMERITA Sotalol HCl (Sotalol Hcl 80 Mg Tab) 40 mg PO BID BRANDON Stop: 10/23/24 20:59 Last Admin: 09/24/24 09:06 Dose: 40 mg Documented By: Admin: 09/23/24 21:10 Dose: 40 mg Documented By: HOSEA Tamsulosin HCl (Tamsulosin Hcl 0.4 Mg Cap) 0.4 mg PO DAILY BRANDON Stop: 10/24/24 08:59 Last Admin: 09/24/24 09:06 Dose: 0.4 mg Documented By: EMERITA
[2024-09-24 18:14] LABS: Hematocrit (blood only) 24.6 % (42.0-52.0); Mean Corpuscular Hemoglobin 28.8 pg (25.0-34.0); Mean Corpuscular Hgb Conc 32.5 g/dL (32.0-36.0); Mean Corpuscular Volume 88.5 fL (80.0-100.0); Mean Platelet Volume 10.3 fL (9.4-12.4); Platelet Count 158 K/uL (130-400); RDW Coefficient of Variation 16.3 % (11.5-14.5); RDW Standard Deviation 52.3 fL (36.4-46.3); Red Blood Count 2.78 M/uL (4.70-6.10); White Blood Count 5.94 K/ul (4.8-10.8)
[2024-09-24] MEDS: PANCREAZE (LIPASE 10,500U) CAP PO SCH (18:17)
[2024-09-24 19:16] VITALS: PULSE 60
[2024-09-25] MEDS: ACETAMINOPHEN 325 MG TAB PO PRN (06:17)
[2024-09-25 06:53] LABS: Hemoglobin 8.2 g/dl (14.0-18.0); Mean Corpuscular Hgb Conc 32.8 g/dL (32.0-36.0); Mean Corpuscular Volume 88.3 fL (80.0-100.0); Mean Platelet Volume 10.3 fL (9.4-12.4); Platelet Count 163 K/uL (130-400); RDW Coefficient of Variation 16.3 % (11.5-14.5); RDW Standard Deviation 52.2 fL (36.4-46.3); Red Blood Count 2.83 M/uL (4.70-6.10); White Blood Count 7.11 K/ul (4.8-10.8)
[2024-09-25 07:15] LABS: BUN Creatinine Ratio 15.2 (10-20); Calcium 8.2 mg/dl (8.6-10.3); Creatinine Clr Calc Pharmacy 51.1 ml/min; Potassium 4.1 mmol/L (3.5-5.1)
[2024-09-25 07:34] LABS: Ferritin 29.8 ng/ml (8-388)
[2024-09-25] MEDS: LACTATED RINGER'S 1,000 ML IV SCH (09:02)
[2024-09-25] MEDS ORDERED: PROPOFOL IV EMULSION 10 MG/ML 20 ML VIAL IV ONE (11:36)
[2024-09-25] MEDS ORDERED: LIDOCAINE 2% 2 ML VIAL/AMP(20MG/ML) INFIL ONE (11:36)
--- NOTE | 2024-09-25 11:51 | History & Physical Report ---
Date of Service September 25, 2024 Assessment & Plan (1) Anemia: Plan: Pleasant man with a history of melena. Procedure and risks for eGD discussed. He agrees Admission and Anticipated Discharge Date Admission Date: September 23, 2024 History of Present Illness Chief Complaint: for egd Primary Care Provider: Katia Gold MD 84 year old man with melena. He is here for EGD Allergies Allergy/AdvReac Type Severity Reaction Status Date / Time No Known Allergies Allergy Verified 08/27/21 13:04 Home Medications Medication Instructions Recorded Confirmed Type aspirin 81 mg tablet,delayed 81 mg PO DAILY 08/09/19 09/23/24 History release cetirizine 10 mg capsule 10 mg PO DIRECTED PRN allergies 08/09/19 09/23/24 History esomeprazole magnesium 20 mg 20 mg PO UD 08/09/19 09/23/24 History capsule,delayed release lovastatin 40 mg tablet 40 mg PO DAILY 08/09/19 09/23/24 History methylcellulose (laxative) 500 mg 500 mg PO DAILY 08/09/19 09/23/24 History tablet (Citrucel) omeprazole 10 mg capsule,delayed 10 mg PO DAILY 08/09/19 09/23/24 History release pantoprazole 20 mg tablet,delayed 20 mg PO UD 08/09/19 09/23/24 History release triamcinolone acetonide 55 55 mcg intranasal DIRECTED 08/09/19 09/23/24 History mcg/actuation nasal spray,aerosol warfarin 2 mg tablet 2 mg PO UD 08/09/19 09/23/24 History dutasteride 0.5 mg capsule 0.5 mg PO DAILY #90 caps 09/13/23 09/23/24 Rx tamsulosin 0.4 mg capsule 0.4 mg PO DAILY #90 caps 09/11/24 09/23/24 Rx clopidogrel 75 mg tablet 75 mg PO DAILY 09/23/24 09/23/24 History metoprolol succinate 25 mg 25 mg PO DAILY 09/23/24 09/23/24 History tablet,extended release 24 hr sotalol 80 mg tablet 40 mg PO BID 09/23/24 09/23/24 History Past Med/Surg History Problem List Skin tear of right upper extremity (Acute) Contusion of elbow, right (Acute) Anemia (Acute) Acute upper gastrointestinal bleeding (Acute) Effusion, right elbow Upper gastrointestinal bleed Acute blood loss anemia Chronic anticoagulation Hypertension Dyslipidemia History of aortic valve replacement History of cardiac pacemaker in situ AV node dysfunction Paroxysmal atrial fibrillation Spermatocele Benign localized prostatic hyperplasia with lower urinary tract symptoms (LUTS) Surgical History History of cholecystectomy H/O oral surgery H/O colonoscopy Hx of heart surgery H/O knee surgery Family History Father Prostate cancer Brother Prostate cancer Social History Smoking Status: Former smoker Tobacco Type: Cigarettes and Cigars Second Hand Exposure: No; Tobacco Cessation Education Requested by Patient: No Hx Alcohol Use: No Hx Substance Use: No Preferred Language: Tajik Communication Ability: Effective Photoengraving Sketch Maker Required: No Beliefs That Will Affect Care: None marital status: Current Living Situation: Spouse current occupational status: retired Other Information That Helps Us Care for You: No Feels Safe at Home: Yes Safety Concerns: Feels Safe At This Time Assistive Devices: Bedside Commode and Walker Physical Exam Respiratory: normal respiratory effort, lungs clear to auscultation Cardiovascular: RRR, no murmur, no edema Gastrointestinal (Abdomen): normal bowel sounds, soft, nontender, no hepatosplenomegaly ASA Classification ASA ASA3 Results & Data Vital Signs (Past 12 Hours) Vital Signs Temp Pulse Resp BP Pulse Ox O2 Del Method 09/25/24 07:40 36.3 C L 60 18 112/60 96 Room Air Code Status & VTE Plan VTE Prophylaxis Plan VTE Prophylaxis will be ordered: Yes
--- NOTE | 2024-09-25 12:19 | Anesthesiology Consultation ---
Date of Service September 25, 2024 Assessment & Plan Consults Requested medical & cardiac Pulmonary Proposed Anesthesia Risk / Benefits Reviewed With: PT / POA / Parent / Guardian, Accepts Plan and Informed Consent Obtained History Surgery Operation Date: 09/25/24 16:45 Proposed Procedures p Esophagogastroduodenoscopy Dr. Pennie Casper Jr, MD Height/Weight Height: 6 ft 1 in Weight: 109.9 kg Allergies Allergy/AdvReac Type Severity Reaction Status Date / Time No Known Allergies Allergy Verified 08/27/21 13:04 Medications Home Medications Medication Instructions Recorded Confirmed Last Taken aspirin 81 mg tablet,delayed 81 mg PO DAILY 08/09/19 09/23/24 Unknown release cetirizine 10 mg capsule 10 mg PO DIRECTED PRN allergies 08/09/19 09/23/24 Unknown esomeprazole magnesium 20 mg 20 mg PO UD 08/09/19 09/23/24 Unknown capsule,delayed release lovastatin 40 mg tablet 40 mg PO DAILY 08/09/19 09/23/24 Unknown methylcellulose (laxative) 500 mg 500 mg PO DAILY 08/09/19 09/23/24 Unknown tablet (Citrucel) omeprazole 10 mg capsule,delayed 10 mg PO DAILY 08/09/19 09/23/24 Unknown release pantoprazole 20 mg tablet,delayed 20 mg PO UD 08/09/19 09/23/24 Unknown release triamcinolone acetonide 55 55 mcg intranasal DIRECTED 08/09/19 09/23/24 Unknown mcg/actuation nasal spray,aerosol warfarin 2 mg tablet 2 mg PO UD 08/09/19 09/23/24 Unknown dutasteride 0.5 mg capsule 0.5 mg PO DAILY #90 caps 09/13/23 09/23/24 Unknown tamsulosin 0.4 mg capsule 0.4 mg PO DAILY #90 caps 09/11/24 09/23/24 Unknown clopidogrel 75 mg tablet 75 mg PO DAILY 09/23/24 09/23/24 Unknown metoprolol succinate 25 mg 25 mg PO DAILY 09/23/24 09/23/24 Unknown tablet,extended release 24 hr sotalol 80 mg tablet 40 mg PO BID 09/23/24 09/23/24 Unknown Active Medications Generic Name Dose Route Start Last Admin Trade Name Freq PRN Reason Stop Dose Admin Acetaminophen 650 mg 09/23/24 14:31 09/25/24 06:17 Acetaminophen 325 Mg Tab PO 10/23/24 14:30 650 mg Q4H PRN Administration pain/fever Lipase/Protease/Amylase 1 cap 09/24/24 18:00 09/25/24 09:07 Pancreaze (Lipase 10,500u) Cap PO 10/24/24 17:59 1 cap DAILY BRANDON Administration Finasteride 5 mg 09/24/24 09:00 09/25/24 09:08 Finasteride 5 Mg Tab PO 10/24/24 08:59 5 mg DAILY BRANDON Administration Pantoprazole Sodium 40 mg in 10 mls @ 5 mls/min 09/23/24 14:31 09/25/24 09:03 Protonix IV 10/23/24 14:30 5 mls/min BID BRANDON Administration Lactated Ringer's 1,000 mls @ 80 mls/hr 09/25/24 08:15 09/25/24 09:02 Lr IV 09/25/24 18:00 80 mls/hr .[id number] BRANDON Administration Metoprolol Succinate 25 mg 09/24/24 09:00 09/25/24 09:07 Metoprolol Succ 25mg Ext Rel Tab PO 10/24/24 08:59 25 mg DAILY BRANDON Administration Sotalol HCl 40 mg 09/23/24 21:00 09/25/24 09:07 Sotalol Hcl 80 Mg Tab PO 10/23/24 20:59 40 mg BID BRANDON Administration Tamsulosin HCl 0.4 mg 09/24/24 09:00 09/25/24 09:07 Tamsulosin Hcl 0.4 Mg Cap PO 10/24/24 08:59 0.4 mg DAILY BRANDON Administration NPO Date Last Intake of Fluids: 09/25/24 Time Last Intake of Fluids: 09:00 Date Last Intake of Solids: 09/24/24 Time Last Intake of Solids: 18:00 Past Medical History Cold urticaria CAD /AZ plus stents CKD Exercise / Class Metabolic Activity II 4-5 Yardwork/Stairs/Walk up hill Past Family History Family History Father Prostate cancer Brother Prostate cancer Past Surgical History Surgical History History of cholecystectomy H/O oral surgery H/O colonoscopy Hx of heart surgery H/O knee surgery Aortic Valve replacement (Bovine valve) 07/2024 S/P Cardiac catheterization + stents (~2024) Past Anesthesia History No Hx of Anesthesia Complications and No Family Hx of Anesthesia Complications History of PONV No Hx of PONV and No Hx of Motion Sickness Social History Smoking Status: Former smoker Hx Alcohol Use: No Hx Substance Use: No Physical Exam Vital Signs Last Vital Signs Temp 36.2 C L 09/25/24 11:46 Pulse 60 09/25/24 11:46 Resp 18 09/25/24 11:46 BP 145/65 H 09/25/24 11:46 Pulse Ox 99 09/25/24 11:46 O2 Del Method Room Air 09/25/24 11:46 Constitutional no acute distress ENMT Mouth: no dentition abnormality Thyromental Distance: > or= 3.5 Finger Breadths Mallampati Class: II Neck normal visual inspection Respiratory normal respiratory effort; no respiratory distress Auscultation: lungs clear to auscultation bilaterally Cardiovascular Rate/Rhythm: regular rate and regular rhythm Heart Sounds: no murmur Musculoskeletal Spine: normal cervical ROM Psychiatric Orientation: alert and oriented x 3 Testing Laboratory Results 09/25/24 06:29 09/25/24 06:29 PT 13.6 Seconds (9.0-12.0) H 09/24/24 05:22 INR 1.3 (0.9-1.1) H 09/24/24 05:22 APTT 30 Seconds (21-31) 09/23/24 10:34 Urine Color Dark Yellow 09/23/24 15:36 Urine Appearance Clear (Clear) 09/23/24 15:36 Urine pH 5.0 (4.5-7.5) 09/23/24 15:36 Ur Specific [place] 1.028 (1.000-1.030) 09/23/24 15:36 Urine Protein Trace (Negative) H 09/23/24 15:36 Urine Glucose (UA) Negative (Negative) 09/23/24 15:36 Urine Ketones Trace (Negative) H 09/23/24 15:36 Urine Nitrite Negative (Negative) 09/23/24 15:36 Ur Leukocyte Esterase Negative (Negative) 09/23/24 15:36 Urine WBC (Auto) 0-5 /hpf (0-5) 09/23/24 15:36 Urine RBC (Auto) 0-2 /hpf (0-2) 09/23/24 15:36 U Hyaline Cast (Auto) 0-2 /lpf (0-2) 09/23/24 15:36 U Epithel Cells (Auto) 0-2 /hpf (0-2) 09/23/24 15:36 Urine Bacteria (Auto) None Seen (None Seen) 09/23/24 15:36 Blood Type O Positive 09/23/24 10:38 Antibody Screen NEGATIVE 09/23/24 10:38 Day of Procedure Evaluation. Date of Surgery September 25, 2024 Height/Weight Height: 6 ft 1 in Weight: 109.9 kg Vital Signs Last Vital Signs Temp 36.2 C L 09/25/24 11:46 Pulse 60 09/25/24 11:46 Resp 18 09/25/24 11:46 BP 145/65 H 09/25/24 11:46 Pulse Ox 99 09/25/24 11:46 O2 Del Method Room Air 09/25/24 11:46 Allergies Allergy/AdvReac Type Severity Reaction Status Date / Time No Known Allergies Allergy Verified 08/27/21 13:04 Medications Home Medications Medication Instructions Recorded Confirmed Last Taken aspirin 81 mg tablet,delayed 81 mg PO DAILY 08/09/19 09/23/24 Unknown release cetirizine 10 mg capsule 10 mg PO DIRECTED PRN allergies 08/09/19 09/23/24 Unknown esomeprazole magnesium 20 mg 20 mg PO UD 08/09/19 09/23/24 Unknown capsule,delayed release lovastatin 40 mg tablet 40 mg PO DAILY 08/09/19 09/23/24 Unknown methylcellulose (laxative) 500 mg 500 mg PO DAILY 08/09/19 09/23/24 Unknown tablet (Citrucel) omeprazole 10 mg capsule,delayed 10 mg PO DAILY 08/09/19 09/23/24 Unknown release pantoprazole 20 mg tablet,delayed 20 mg PO UD 08/09/19 09/23/24 Unknown release triamcinolone acetonide 55 55 mcg intranasal DIRECTED 08/09/19 09/23/24 Unknown mcg/actuation nasal spray,aerosol warfarin 2 mg tablet 2 mg PO UD 08/09/19 09/23/24 Unknown dutasteride 0.5 mg capsule 0.5 mg PO DAILY #90 caps 09/13/23 09/23/24 Unknown tamsulosin 0.4 mg capsule 0.4 mg PO DAILY #90 caps 09/11/24 09/23/24 Unknown clopidogrel 75 mg tablet 75 mg PO DAILY 09/23/24 09/23/24 Unknown metoprolol succinate 25 mg 25 mg PO DAILY 09/23/24 09/23/24 Unknown tablet,extended release 24 hr sotalol 80 mg tablet 40 mg PO BID 09/23/24 09/23/24 Unknown Active Medications Generic Name Dose Route Start Last Admin Trade Name Freq PRN Reason Stop Dose Admin Acetaminophen 650 mg 09/23/24 14:31 09/25/24 06:17 Acetaminophen 325 Mg Tab PO 10/23/24 14:30 650 mg Q4H PRN Administration pain/fever Lipase/Protease/Amylase 1 cap 09/24/24 18:00 09/25/24 09:07 Pancreaze (Lipase 10,500u) Cap PO 10/24/24 17:59 1 cap DAILY BRANDON Administration Finasteride 5 mg 09/24/24 09:00 09/25/24 09:08 Finasteride 5 Mg Tab PO 10/24/24 08:59 5 mg DAILY BRANDON Administration Pantoprazole Sodium 40 mg in 10 mls @ 5 mls/min 09/23/24 14:31 09/25/24 09:03 Protonix IV 10/23/24 14:30 5 mls/min BID BRANDON Administration Lactated Ringer's 1,000 mls @ 80 mls/hr 09/25/24 08:15 09/25/24 09:02 Lr IV 09/25/24 18:00 80 mls/hr .[id number] BRANDON Administration Metoprolol Succinate 25 mg 09/24/24 09:00 09/25/24 09:07 Metoprolol Succ 25mg Ext Rel Tab PO 10/24/24 08:59 25 mg DAILY BRANDON Administration Sotalol HCl 40 mg 09/23/24 21:00 09/25/24 09:07 Sotalol Hcl 80 Mg Tab PO 10/23/24 20:59 40 mg BID BRANDON Administration Tamsulosin HCl 0.4 mg 09/24/24 09:00 09/25/24 09:07 Tamsulosin Hcl 0.4 Mg Cap PO 10/24/24 08:59 0.4 mg DAILY BRANDON Administration Past Anesthesia History No Hx of Anesthesia Complications and No Family Hx of Anesthesia Complications History of PONV No Hx of PONV and No Hx of Motion Sickness NPO Date Last Intake of Fluids: 09/25/24 Time Last Intake of Fluids: 09:00 Date Last Intake of Solids: 09/24/24 Time Last Intake of Solids: 18:00 Home Medications Home Medications Medication Instructions Recorded Confirmed Last Taken aspirin 81 mg tablet,delayed 81 mg PO DAILY 08/09/19 09/23/24 Unknown release cetirizine 10 mg capsule 10 mg PO DIRECTED PRN allergies 08/09/19 09/23/24 Unknown esomeprazole magnesium 20 mg 20 mg PO UD 08/09/19 09/23/24 Unknown capsule,delayed release lovastatin 40 mg tablet 40 mg PO DAILY 08/09/19 09/23/24 Unknown methylcellulose (laxative) 500 mg 500 mg PO DAILY 08/09/19 09/23/24 Unknown tablet (Citrucel) omeprazole 10 mg capsule,delayed 10 mg PO DAILY 08/09/19 09/23/24 Unknown release pantoprazole 20 mg tablet,delayed 20 mg PO UD 08/09/19 09/23/24 Unknown release triamcinolone acetonide 55 55 mcg intranasal DIRECTED 08/09/19 09/23/24 Unknown mcg/actuation nasal spray,aerosol warfarin 2 mg tablet 2 mg PO UD 08/09/19 09/23/24 Unknown dutasteride 0.5 mg capsule 0.5 mg PO DAILY #90 caps 09/13/23 09/23/24 Unknown tamsulosin 0.4 mg capsule 0.4 mg PO DAILY #90 caps 09/11/24 09/23/24 Unknown clopidogrel 75 mg tablet 75 mg PO DAILY 09/23/24 09/23/24 Unknown metoprolol succinate 25 mg 25 mg PO DAILY 09/23/24 09/23/24 Unknown tablet,extended release 24 hr sotalol 80 mg tablet 40 mg PO BID 09/23/24 09/23/24 Unknown Active Medications Generic Name Dose Route Start Last Admin Trade Name Freq PRN Reason Stop Dose Admin Acetaminophen 650 mg 09/23/24 14:31 09/25/24 06:17 Acetaminophen 325 Mg Tab PO 10/23/24 14:30 650 mg Q4H PRN Administration pain/fever Lipase/Protease/Amylase 1 cap 09/24/24 18:00 09/25/24 09:07 Pancreaze (Lipase 10,500u) Cap PO 10/24/24 17:59 1 cap DAILY BRANDON Administration Finasteride 5 mg 09/24/24 09:00 09/25/24 09:08 Finasteride 5 Mg Tab PO 10/24/24 08:59 5 mg DAILY BRANDON Administration Pantoprazole Sodium 40 mg in 10 mls @ 5 mls/min 09/23/24 14:31 09/25/24 09:03 Protonix IV 10/23/24 14:30 5 mls/min BID BRANDON Administration Lactated Ringer's 1,000 mls @ 80 mls/hr 09/25/24 08:15 09/25/24 09:02 Lr IV 09/25/24 18:00 80 mls/hr .[id number] BRANDON Administration Metoprolol Succinate 25 mg 09/24/24 09:00 09/25/24 09:07 Metoprolol Succ 25mg Ext Rel Tab PO 10/24/24 08:59 25 mg DAILY BRANDON Administration Sotalol HCl 40 mg 09/23/24 21:00 09/25/24 09:07 Sotalol Hcl 80 Mg Tab PO 10/23/24 20:59 40 mg BID BRANDON Administration Tamsulosin HCl 0.4 mg 09/24/24 09:00 09/25/24 09:07 Tamsulosin Hcl 0.4 Mg Cap PO 10/24/24 08:59 0.4 mg DAILY BRANDON Administration Exercise / Class Metabolic Activity Metabolic Activity: II 4-5 Yardwork/Stairs/Walk up hill Physical Exam Constitutional: no acute distress Mouth: no dentition abnormality Thyromental Distance: > or= 3.5 Finger Breadths Mallampati Class: II Neck: + visual inspection normal Respiratory: + respiratory effort normal and + clear to auscultation bilaterally; no respiratory distress Cardiovascular: + regular rate and + regular rhythm; no murmur Musculoskeletal: no limited cervical ROM Psychiatric: + alert and + oriented x 3 Proposed Anesthesia Risk / Benefits Reviewed With: PT / POA / Parent / Guardian, Accepts Plan and Informed Consent Obtained
--- NOTE | 2024-09-25 12:50 | GI REPORT ---
[facility] Patient: ALLISON SWANN : 1940 Sex at : Male Age: 84 Years Procedure: Upper GI endoscopy Date: 09/25/2024 Attending Physician: Carlos Casper MD Referring MD: Luis Fisher MD Indications: - Melena Medications: - Monitored Anesthesia Care - Propofol per Anesthesia - See the Anesthesia note for documentation of the administered medications Complications: - No immediate complications. Estimated Blood Loss: - Estimated blood loss: None. Procedure: - ASA Grade Assessment: III - A patient with severe systemic disease. - The egd scope was introduced through the mouth and advanced to the second part of the duodenum. - The upper GI endoscopy was accomplished without difficulty. - The patient tolerated the procedure well. Findings: - The examined esophagus was normal. - The entire examined stomach was normal. - The examined duodenum was normal. Impression: - Normal esophagus. - Normal stomach. - Normal examined duodenum. - No specimens collected. I suspect bleeding related to AVM's. Don't think further workup needed at this time unless he would bleed again. Recommendation: - Return patient to [facility] for ongoing care. - Resume previous diet. Procedure Code(s): - 61464, Esophagogastroduodenoscopy, flexible, transoral; diagnostic, including collection of specimen(s) by brushing or washing, when performed (separate procedure) Diagnosis Code(s): - K92.1, Melena (includes Hematochezia) CPT(R) - 2023 copyright [employer]. All Rights Reserved. The CPT codes, CCI edits and ICD codes generated are intended as suggestions and were generated based on input data. These codes are preliminary and upon physician coder review may be revised to meet current compliance and payer requirements. The provider is responsible for the final determination of appropriate codes, and modifiers. Dr. Carlos Casper MD This document has been electronically signed. Note Initiated:09/25/2024 Note Completed:09/25/2024 12:49 PM \\[email or web address]\Results\[id number]
[2024-09-25 13:38] VITALS: BP 136/73; RESP 18; TEMP 98.1; O2SAT 97
--- NOTE | 2024-09-25 15:09 | Discharge Summary ---
Discharge Summary Date of Service September 25, 2024 Principal Dx & Hospital Course #1 = Principal Diagnosis (1) Acute blood loss anemia: -s/p 2 units of blood -black stools for past week or so -concern for upper GI bleed Plan: -bid protonix at discharge -restart warfarin first, then aspirin in one week -needs f/u with cardiology for consideration of watchman, restarting plavix -plavix held at this time as risk of bleed outweighs benefit of DAPT plus blood thinner (2) Upper gastrointestinal bleed: -see above (3) Effusion, right elbow: -per patient pain is bearable at this time (4) Paroxysmal atrial fibrillation: -restart at home (5) Chronic anticoagulation: -see above (6) History of aortic valve replacement: -Bovine valve (7) History of cardiac pacemaker in situ: -noted (8) Hypertension: -f/u outpatient Notes For Next Care Provider Patient is an 84-year-old gentleman on chronic warfarin therapy for history of paroxysmal atrial fibrillation, TAVR, AV node dysfunction who presented for dizziness. On medicine, received blood, GI consulted. GI performed EGD without source of bleed. 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 Given recent bleeding, will hold plavix, restart warfarin, and restart aspirin a few days after restarting warfarin to give AVMs chance to heal. On 09/25/2024 patient medically stable for discharge home. Will need f/u with cardiology for consideration of watchman device and restarting plavix. Medication Changes From Visit -hold plavix for now, protonix Admission HPI Per Admitting Provider Patient presents emergency department with signs and symptoms consistent with anemia including suspected orthostasis, dyspnea on exertion and lightheadedness and dizziness. With the symptoms and history of heart disorder would meet criteria for blood transfusion. Requires hospitalization for treatment, monitoring and specialty consultation. Admit to the MedSurg unit. Patient has been consented for blood and as already receiving PRBCs here in the ED Continue to hold warfarin and antiplatelet therapy. Patient has been holding these medications since Wednesday Vitamin K given in the ED PPI twice daily Monitor hemoglobin, monitor INR Consult GI to evaluate for possible endoscopy Discussed CODE STATUS, patient wishes to be full code and daughter at bedside agreeable to plan of care as well Discharge Exam Gen: A&O 3 NAD HEENT: NCAT, EOMI, not icteric. External ears normal. No rhinorrhea. Moist mucous membranes. poor dentition Neck: Supple, full range of motion, no observable masses, No meningeal sign. Lungs: No Respiratory distress. CV: RRR, no edema. Abdomen: Soft, nondistended, No rebound tenderness. MSK: No joint swelling, no redness. Skin: No rashes, petechiae, lesions. Normal color per patient. Neuro: Normal Gait, Grossly intact. Psych: Appropriate for situation. Updated Medication List Medication Instructions Recorded Confirmed Type aspirin 81 mg tablet,delayed 81 mg PO DAILY 08/09/19 09/23/24 History release cetirizine 10 mg capsule 10 mg PO DIRECTED PRN allergies 08/09/19 09/23/24 History esomeprazole magnesium 20 mg 20 mg PO UD 08/09/19 09/23/24 History capsule,delayed release lovastatin 40 mg tablet 40 mg PO DAILY 08/09/19 09/23/24 History methylcellulose (laxative) 500 mg 500 mg PO DAILY 08/09/19 09/23/24 History tablet (Citrucel) omeprazole 10 mg capsule,delayed 10 mg PO DAILY 08/09/19 09/23/24 History release pantoprazole 20 mg tablet,delayed 20 mg PO UD 08/09/19 09/23/24 History release triamcinolone acetonide 55 55 mcg intranasal DIRECTED 08/09/19 09/23/24 History mcg/actuation nasal spray,aerosol warfarin 2 mg tablet 2 mg PO UD 08/09/19 09/23/24 History dutasteride 0.5 mg capsule 0.5 mg PO DAILY #90 caps 09/13/23 09/23/24 Rx tamsulosin 0.4 mg capsule 0.4 mg PO DAILY #90 caps 09/11/24 09/23/24 Rx clopidogrel 75 mg tablet 75 mg PO DAILY 09/23/24 09/23/24 History metoprolol succinate 25 mg 25 mg PO DAILY 09/23/24 09/23/24 History tablet,extended release 24 hr sotalol 80 mg tablet 40 mg PO BID 09/23/24 09/23/24 History pantoprazole 40 mg granules 40 mg PO BID 4 weeks #60 ea 09/25/24 Rx delayed-release for susp in packet (Protonix) Hospital Stay Data Consultations 09/23/24 11:51 ED Decision to Admit Stat 09/23/24 14:31 Consult Gastroenterology Routine Procedures Performed Operation Date: 09/25/24 16:45 Actual Procedures p Esophagogastroduodenoscopy - Carlos Casper Jr, MD Pending Results Patient Have Any Pending Studies at Discharge: No Discharge Instructions Given to Patient (Per Discharging Provider) 1. Please take medications as prescribed. 2. Follow up with PCP, GI, credit union teller. Total Time Total Time Spent Total Time Spent (In Minutes): I spent a total of 35 minutes in direct patient care, including [id number] radha with the patient and/or family, reviewing medical records, ordering and reviewing diagnostic tests, and coordinating care with other healthcare providers. This time includes: history taking, physical examination, medical decision making, counseling, ECG interpretation, imaging interpretation, lab interpretation, orders, and education, excluding time spent in the performance of separately billed services.
--- NOTE | 2024-09-25 15:45 | Anesthesiology Progress Note ---
Date of Service September 25, 2024 Anesthesia Post Procedure Vital Signs Vital Signs: Temp Pulse Pulse Resp BP BP Pulse Ox 09/25/24 13:37 36.7 C 60 18 136/73 97 09/25/24 13:18 60 16 129/48 L 94 09/25/24 13:04 60 16 124/41 L 99 09/25/24 12:49 60 60 16 110/50 L 97 09/25/24 11:46 36.2 C L 60 18 145/65 H 99 09/25/24 07:40 36.3 C L 60 18 112/60 96 09/24/24 19:14 36.7 C 60 18 123/67 97 O2 Del Method 09/25/24 13:37 Room Air 09/25/24 13:18 Room Air 09/25/24 13:04 Room Air 09/25/24 12:49 Room Air 09/25/24 11:46 Room Air 09/25/24 07:40 Room Air 09/24/24 19:14 Room Air Transfer of Care Handoff Completed per policy Notes Mental Status: alert / awake / arousable and participated in evaluation Nausea / Vomiting: adequately controlled Pain: adequately controlled Airway Patency, RR, SpO2: stable & adequate BP & HR: stable & adequate Hydration State: stable & adequate Anesthetic Complications: no major complications apparent and Pt Satisfied with anesthetic care
== END 2024-09-25 16:15 | disposition home or self-care (01) | DRG 378 ==
LOC: ED 10:13 → 3N 12:23 → SUATTDRO 12:23 → 3N 14:03